=== PATIENT | male | born 1945 | race Caucasian/White ===

== ENCOUNTER → 2016-11-21 | Outpatient (CLI) | payer MEDICARE, OTHER | LOC: RAD 10:02 | PROVIDERS: ATTEND Family Medicine | DX: Z53.9 Procedure and treatment not carried out, unspecified reason (principal) ==

== ENCOUNTER → 2018-01-05 | Outpatient (CLI) | payer MEDICARE, OTHER ==
--- NOTE | 2018-01-06 10:07 | RADIOLOGY REPORT (SQ) ---
EXAM DESCRIPTION: PET CT SKULL/THIGH COMPLETED DATE/TIME: 01/05/2018 7:19 pm REASON FOR STUDY: SOLITARY PULMONARY NODULE R91.1 SOLITARY PULMONARY NODULE COMPARISON: None. Correlation: Report from chest CT lung screening 12/11/2017 outside facility. RADIONUCLIDE AND DOSE: 10.3 mCi F18 FDG The route of agent administration: Intravenous FASTING BLOOD SUGAR: 124 mg/dl CONTRAST TYPE AND DOSE: No CT contrast given. TECHNIQUE: Blood glucose level was verified. Above dose of FDG was injected intravenously. 2-D seg mented attenuation correction images were obtained from the base of the skull to the midthighs. Nonc ontrast CT images were obtained for attenuation correction and fusion with emission images. CT image s were performed without oral or intravenous contrast and are not sensitive for parenchymal lesions. A series of overlapping emission PET images were obtained. Images reviewed and manipulated at [facility] work station by the radiologist. Images stored on PACS. LIMITATIONS: None. FINDINGS: HEAD AND NECK: No areas of abnormal metabolic activity in the soft tissues of the head and neck. CHEST: Hypermetabolic left upper lobe 1.5 cm nodule 3.1 to 3.2 SUV. ABDOMEN AND PELVIS: Expected physiologic activity is present in the genitourinary system and bowel. In the lower pole of the right kidney, there is striking increased activity 11.7 to 12.1 SUV within a lower pole 4 cm primarily cystic lesion. The inferior margin of the lesion measures 21 HU. PROXIMAL LOWER EXTREMITIES: No areas of abnormal metabolic activity in the soft tissues of the lower extremities. BONES: No abnormal metabolic activity in the visualized skeleton. ADDITIONAL CT FINDINGS: Centrilobular emphysema. Multiple bilateral renal cysts. Rim of calcificati on along the posterior left lower pole cortex. Atherosclerotic aorta. Stent left common iliac and e xternal iliac artery. OTHER: Liver activity 2.2 to 2.5 SUV. Blood pool 1.6 to 1.7 SUV. IMPRESSION: 1. Hypermetabolic left upper lobe nodule suspicious for malignancy. This is potentially amenable to CT-guided biopsy, however moderate risk of pneumothorax. 2. Right lower pole hypermetabolic primarily cystic lesion. This could be a false-positive due to ex pected physiologic activity. However consider dedicated renal MRI. TECHNICAL DOCUMENTATION: JOB ID: [id number] [employer] All Rights Reserved Reading location - IP/workstation name: [facility]
== END ==
LOC: RAD 16:43
PROVIDERS: ATTEND Internal Medicine
DX: R91.1 Solitary pulmonary nodule (principal); J43.2 Centrilobular emphysema; Q61.02 Congenital multiple renal cysts
CPT/HCPCS: 78815; A9552

== ENCOUNTER → 2018-02-07 | Outpatient (CLI) | payer MEDICARE, OTHER ==
[~2018-02-07] MED LIST: ALBUTEROL SULFATE 0.083% NEB 2.5 MG/3 ML AMPUL NEB ONE
--- NOTE | 2018-02-07 09:19 | RADIOLOGY REPORT (SQ) ---
EXAM DESCRIPTION: CT CHEST WITH COMPLETED DATE/TIME: 02/07/2018 8:39 am REASON FOR STUDY: OTHER NONSPECIFIC ABNORMAL FINDING OF LUNG FIELD R91.8 OTHER NONSPECIFIC ABNORMAL FINDING OF LUNG FIELD COMPARISON: PET-CT dated 01/05/2018 TECHNIQUE: CT scan of the chest performed using helical scanning technique with dynamic intravenous contrast injection. Images reviewed with lung, soft tissue and bone windows. Reconstructed coronal and sagittal MPR and MIP images reviewed. All images stored on PACS. All CT scanners at this facility use dose modulation, iterative reconstruction, and/or weight based d osing when appropriate to reduce radiation dose to as low as reasonably achievable (ALARA). [facility]: Dose Right [facility]: CareDose [facility]: Dose Right [facility]: Teradose 4D [facility]: CIBDO CONTRAST TYPE AND DOSE: contrast/concentration: Isovue 370.00 mg/ml; Total Contrast Delivered: 80.0 ml; Total Saline Delivered: 55.0 ml RENAL FUNCTION: Creatinine 0.8 RADIATION DOSE: CT Rad equipment meets quality standard of care and radiation dose reduction techniq ues were employed. CTDIvol: 14.4 mGy. DLP: 587 mGy-cm. . LIMITATIONS: None. FINDINGS: LUNGS AND PLEURA: There are bilateral emphysematous changes. There is a spiculated partia lly cavitary lesion in the left upper lobe. This measures approximate 1.9 cm. There is an additiona l 6.9 mm nodule in the left upper lobe. This is stable from PET-CT. No additional pulmonary nodules are identified. HILAR AND MEDIASTINAL STRUCTURES: No identified masses or abnormal nodes. HEART AND VASCULAR STRUCTURES: No aneurysm or dissection. No central pulmonary emboli. No pericardi al effusion. HARDWARE: None in the chest. UPPER ABDOMEN: Multiple left renal cysts. The lower pole the right kidney was not imaged. There is a single hypervascular lesion in the right lobe of liver. This measures 1.8 cm. This is nonspecific . This could represent vascular lesion less likely hypervascular metastasis. THYROID AND OTHER SOFT TISSUES: No masses. No adenopathy. BONES: No significant finding. OTHER: No other significant finding. IMPRESSION: 1. 1.9 cm spiculated mass in the left upper lobe. There is an additional 6.9 mm nodule medial in location in the left upper lobe. These are stable from recent PET-CT. 2. Hypervascular lesion in the right lobe of the liver. This is nonspecific but could represent hyp ervascular metastasis or vascular lesion. TECHNICAL DOCUMENTATION: JOB ID: [id number] Quality ID # [id number]: Final reports with documentation of one or more dose reduction techniques (e.g., Au tomated exposure control, adjustment of the mA and/or kV according to patient size, use of iterative reconstruction technique) 2010 [employer]- All Rights Reserved Reading location - IP/workstation name: [email or web address]
--- NOTE | 2018-02-09 15:20 | Pulmonary Function Test ---
Pulmonary Function Test Date of Procedure:: 02/07/18 INDICATION:: Preop Referring Provider: Dr.J Yarbrough [employer] Consultant: Nery Fuller MEDICAL BILLING AND CODING INSTRUCTOR - Report Spirometry: FVC 5.39 L 109% postbronchodilator 5.95 L 120% FEV1 27 L 73% postbronchodilator 3.11 L 79% FEV1/FVC % 53 postbronchodilator 52 predicted 77 FEF 25-75% 0.88 L 23% postbronchodilator 0.90 L 24% Diffusion Capactity: Diffusion capacity 16.4 67% DLCO/VA 2.5 3 70% Impression: Moderate obstructive ventilatory defect. Insignificant response to bronchodilator therapy. Mild decrease in diffusion capacity.
== END ==
LOC: RT 08:10
PROVIDERS: ATTEND Thoracic Surgery (Cardiothoracic Vascular Surgery)
DX: R91.1 Solitary pulmonary nodule (principal); R91.8 Other nonspecific abnormal finding of lung field; R94.2 Abnormal results of pulmonary function studies
CPT/HCPCS: 82565; 71260; 94729; 94060; A9270